=== PATIENT | female | born 1940 | race Caucasian/White ===

== ENCOUNTER 2019-10-12 10:39 | Observation (INO) ==
[2019-10-12] MEDS ORDERED: NITROGLYCERIN SL 0.4 MG TABLET SL PRN (11:10)
[2019-10-12 11:17] LABS: Basophils # 0.1 10*3/uL (0.0-0.2); Basophils % 0.7 % (0.0-0.8); Eosinophils # 0.2 10*3/uL (0.0-0.87); Hematocrit 43.2 VOL% (35.7-47.0); Hemoglobin 14.4 GM/DL (12.0-16.0); Immature Granulocytes % 0.4 %; Immature Granulocytes Absolute 0.03 #; Lymphocytes # 1.8 10*3/uL (1.4-4.0); Lymphocytes % 23.6 % (21.3-54.2); Mean Corpuscular HGB Conc 33.3 GM/DL (32-36); Mean Corpuscular Volume 91.1 FL (87-102); Mean Platelet Volume 9.6 FL (9.6-12.0); Monocytes % 7.5 % (1.7-12.7); Neutrophils % 65.8 % (38.7-73.9); Platelet Count 207 T/CUMM (130-400); Red Blood Count 4.74 MC/CUMM (3.8-5.5); Red Cell Distribution Width 13.6 % (9.3-17.3); White Blood Count 7.6 T/CUMM (4-12)
[2019-10-12 11:37] LABS: Calcium 9.2 MG/DL (8.5-10.1); Osmolality,Calculated 270.1 MOS/KG (273-304)
[2019-10-12 11:51] LABS: Bilirubin,Direct 0.13 MG/DL (0.0-0.20); Bilirubin,Indirect 0.4 MG/DL (0.0-1.0); Bilirubin,Total 0.5 MG/DL (0.2-1.0); Total Protein 7.6 G/DL (6.4-8.3)
[2019-10-12 12:24] LABS: Apearance,Urine CLEAR (Clear); Bacteria,Urine Occasional /HPF (Few); Bilirubin,Urine Negative (Negative); Blood, Urine Small mg/dL (Negative); Glucose,Urine (UA) Negative (Negative); Ketones,Urine Negative (Negative); Nitrite,Urine Negative (Negative); Protein,Urine Negative; RBC,Urine 2 /HPF (0-4); Squamous Epithelial Cell,Urine Occasional /HPF (0-10); Urine Color Straw (Yellow); Urine Specific Gravity 1.002 (1.001-1.035); Urine Urobilinogen < 2.0 EU/DL (0.2-1.0); WBC,Urine 1 /HPF (0-6)
[2019-10-12 12:36] LABS: Barbiturates Screen,Urine Negative (Negative); Benzodiazepines Screen,Urine Negative (Negative); Cannabinoid Screen,Urine Negative (Negative); Opiate Screen,Urine Negative (Negative); Phencyclidine Screen,Urine Negative (Negative)
[2019-10-12] MEDS ORDERED: ACETAMINOPHEN 325 MG TABLET PO PRN (14:46)
[2019-10-12] MEDS ORDERED: ONDANSETRON 4 MG/2 ML VIAL IV PRN (14:46)
[2019-10-12] MEDS ORDERED: DEXTROSE 10% 25 GM/250 ML BAG IV PRN (14:49)
[2019-10-12] MEDS ORDERED: GLUCAGON 1 MG VIAL IM PRN (14:49)
[2019-10-12] MEDS ORDERED: ALUM/MAG/SIMETH/LIDO VISC 1:1 30 ML BOTTLE PO PRN (14:53)
[2019-10-12] MEDS ORDERED: IPRATROPIUM 500 MCG/2.5 ML NEB RESP TX PRN (14:57)
[2019-10-12] MEDS: ATORVASTATIN 10 MG TABLET PO SCH (21:11)
[2019-10-13 05:29] LABS: Basophils # 0.1 10*3/uL (0.0-0.2); Eosinophils # 0.3 10*3/uL (0.0-0.87); Eosinophils % 4.4 % (0.00-10.9); Hematocrit 41.4 VOL% (35.7-47.0); Hemoglobin 13.8 GM/DL (12.0-16.0); Immature Granulocytes % 0.3 %; Immature Granulocytes Absolute 0.02 #; Lymphocytes # 1.9 10*3/uL (1.4-4.0); Lymphocytes % 30.7 % (21.3-54.2); Mean Corpuscular HGB Conc 33.3 GM/DL (32-36); Mean Corpuscular Volume 91.2 FL (87-102); Mean Platelet Volume 9.8 FL (9.6-12.0); Neutrophils % 55.6 % (38.7-73.9); Platelet Count 199 T/CUMM (130-400); Red Blood Count 4.54 MC/CUMM (3.8-5.5); Red Cell Distribution Width 13.7 % (9.3-17.3); White Blood Count 6.2 T/CUMM (4-12)
[2019-10-13 06:00] LABS: Calcium 8.8 MG/DL (8.5-10.1); Osmolality,Calculated 281.4 MOS/KG (273-304); Risk Ratio 3.63; Thyroid Stimulating Hormone 7.7 uIU/ml (0.358-3.74)
[2019-10-13] MEDS ORDERED: MAGNESIUM SULF RIDER 2 GM in PREMIX 1 EACH IV PRN (08:55)
[2019-10-13] MEDS ORDERED: POTASSIUM CHLORIDE RIDER 10 MEQ in PREMIX 1 EACH IV PRN (08:55)
[2019-10-13] MEDS ORDERED: FELODIPINE 5 MG TABLET PO SCH (09:00)
[2019-10-13] MEDS ORDERED: NON-FORMULARY MEDICATION (Tiotropium Bromide [Spiriva Respimat] 2 PUFF) INH SCH (09:00)
[2019-10-13] MEDS: LISINOPRIL 10 MG TABLET PO SCH (09:32)
[2019-10-13] MEDS: RANITIDINE 150 MG TABLET PO SCH (09:32)
[2019-10-13] MEDS: CALCIUM (CARBONATE)/VITAMIN D 600 MG-400 UNIT TABLET PO SCH (09:32)
[2019-10-13] MEDS: MONTELUKAST 10 MG TABLET PO SCH (09:32)
[2019-10-13] MEDS: MULTIVITAMIN (CENTRUM) TABLET PO SCH (09:32)
[2019-10-13] MEDS: NICOTINE 21 MG/24 HR PATCH TRANSDERM SCH (09:33)
[2019-10-13] MEDS: ASPIRIN EC 81 MG TABLET PO SCH (09:33)
[2019-10-13] MEDS: CLOPIDOGREL 75 MG TABLET PO SCH (09:33)
[2019-10-13] MEDS: PANTOPRAZOLE 40 MG TABLET PO SCH (09:33)
[2019-10-13] MEDS: VITAMIN E 400 UNIT CAPSULE PO SCH (09:33)
[2019-10-13] MEDS ORDERED: MAGNESIUM CITRATE 300 ML BOTTLE PO PRN (09:41)
[2019-10-13] MEDS: SODIUM CHLORIDE 0.9% 1,000 ML IV SCH (09:45)
[2019-10-13] MEDS: MULTIVITAMIN (OCUVITE) TABLET PO SCH (10:53)
[2019-10-13] MEDS: ATORVASTATIN 10 MG TABLET PO SCH (21:02)
[2019-10-14] MEDS: SODIUM CHLORIDE 0.9% 1,000 ML IV SCH ×2 (00:46→18:39)
[2019-10-14 05:45] LABS: Basophils # 0.1 10*3/uL (0.0-0.2); Basophils % 1.2 % (0.0-0.8); Eosinophils # 0.3 10*3/uL (0.0-0.87); Hematocrit 39.7 VOL% (35.7-47.0); Hemoglobin 13.1 GM/DL (12.0-16.0); Immature Granulocytes % 0.2 %; Immature Granulocytes Absolute 0.01 #; Lymphocytes # 1.7 10*3/uL (1.4-4.0); Lymphocytes % 33.6 % (21.3-54.2); Mean Corpuscular Volume 92.3 FL (87-102); Mean Platelet Volume 9.8 FL (9.6-12.0); Monocytes % 10.5 % (1.7-12.7); Neutrophils % 48.5 % (38.7-73.9); Platelet Count 193 T/CUMM (130-400); White Blood Count 5.2 T/CUMM (4-12)
[2019-10-14 05:57] LABS: Calcium 8.9 MG/DL (8.5-10.1); Osmolality,Calculated 277.4 MOS/KG (273-304)
[2019-10-14] MEDS ORDERED: LEVOTHYROXINE 50 MCG TABLET PO SCH (06:30)
[2019-10-14] MEDS: LEVOTHYROXINE 25 MCG TABLET PO SCH (07:41)
[2019-10-14] MEDS ORDERED: diphenhydrAMINE CAP 25 MG CAPSULE PO ONE (08:55)
[2019-10-14] MEDS ORDERED: DIAZEPAM 5 MG TABLET PO ONE (08:55)
[2019-10-14] MEDS: NICOTINE 21 MG/24 HR PATCH TRANSDERM SCH (10:53)
[2019-10-14] MEDS ORDERED: HEPARIN/NACL 0.9% 2 UNITS/ML 1,000 ML IV ONE (11:51)
[2019-10-14] MEDS ORDERED: LIDOCAINE 1% 20 ML VIAL ONE (11:51)
[2019-10-14 11:54] VITALS: BP 149/78
[2019-10-14] MEDS ORDERED: MIDAZOLAM 2 MG/2 ML VIAL ONE (13:40)
[2019-10-14] MEDS ORDERED: HYDROmorphone 2 MG/1 ML VIAL ONE (13:40)
[2019-10-14] MEDS ORDERED: diphenhydrAMINE 50 MG/1 ML VIAL ONE (14:09)
[2019-10-14] MEDS ORDERED: NITROGLYCERIN DRIP 50 MG/250 ML BOTTLE IV ONE (14:33)
[2019-10-14] MEDS ORDERED: VERAPAMIL 5 MG/2 ML VIAL ONE (14:33)
[2019-10-14] MEDS ORDERED: BIVALIRUDIN 250 MG VIAL IV ONE (14:51)
[2019-10-14] MEDS ORDERED: HEPARIN/NACL 0.9% 2 UNITS/ML 500 ML IV ONE ×2 (15:17→15:49)
[2019-10-14] MEDS ORDERED: PHENYLEPHRINE 50 MG/5 ML VIAL ONE (16:09)
[2019-10-14] MEDS ORDERED: CLOPIDOGREL 300 MG TABLET ONE (16:55)
[2019-10-14 17:00] LABS: Apearance,Urine CLEAR (Clear); Bilirubin,Urine Negative (Negative); Blood, Urine Moderate mg/dL (Negative); Glucose,Urine (UA) Negative (Negative); Ketones,Urine Negative (Negative); Mucus,Urine Occasional /LPF (Occasional); Nitrite,Urine Negative (Negative); Protein,Urine Negative; RBC,Urine 12 /HPF (0-4); Squamous Epithelial Cell,Urine Occasional /HPF (0-10); Urine Color Colorless (Yellow); Urine Specific Gravity 1.029 (1.001-1.035); Urine Urobilinogen < 2.0 EU/DL (0.2-1.0); WBC,Urine <1 /HPF (0-6)
[2019-10-14] MEDS ORDERED: ZALEPLON 5 MG CAPSULE PO PRN (17:07)
[2019-10-14] MEDS: MULTIVITAMIN (CENTRUM) TABLET PO SCH (17:59)
[2019-10-14] MEDS: CALCIUM (CARBONATE)/VITAMIN D 600 MG-400 UNIT TABLET PO SCH (17:59)
[2019-10-14] MEDS: CLOPIDOGREL 75 MG TABLET PO SCH (17:59)
[2019-10-14] MEDS: ASPIRIN EC 81 MG TABLET PO SCH (17:59)
[2019-10-14] MEDS: MULTIVITAMIN (OCUVITE) TABLET PO SCH (17:59)
[2019-10-14] MEDS: LISINOPRIL 10 MG TABLET PO SCH (18:00)
[2019-10-14] MEDS: PANTOPRAZOLE 40 MG TABLET PO SCH (18:00)
[2019-10-14] MEDS: FELODIPINE 2.5 MG TABLET PO SCH (18:00)
[2019-10-14] MEDS: MONTELUKAST 10 MG TABLET PO SCH (18:01)
[2019-10-14] MEDS: RANITIDINE 150 MG TABLET PO SCH (18:01)
[2019-10-14] MEDS: VITAMIN E 400 UNIT CAPSULE PO SCH (18:01)
[2019-10-14] MEDS: ATORVASTATIN 10 MG TABLET PO SCH (22:34)
[2019-10-15 05:12] LABS: Basophils % 0.5 % (0.0-0.8); Eosinophils # 0.2 10*3/uL (0.0-0.87); Eosinophils % 2.6 % (0.00-10.9); Hematocrit 38.9 VOL% (35.7-47.0); Hemoglobin 12.8 GM/DL (12.0-16.0); Immature Granulocytes % 0.3 %; Immature Granulocytes Absolute 0.02 #; Lymphocytes # 1.3 10*3/uL (1.4-4.0); Mean Corpuscular HGB Conc 32.9 GM/DL (32-36); Mean Platelet Volume 9.3 FL (9.6-12.0); Neutrophils % 67.6 % (38.7-73.9); Platelet Count 174 T/CUMM (130-400); Red Blood Count 4.23 MC/CUMM (3.8-5.5); Red Cell Distribution Width 13.4 % (9.3-17.3); White Blood Count 6.7 T/CUMM (4-12)
[2019-10-15 05:36] LABS: Blood Urea Nitrogen 7 MG/DL (7-18); Calcium 8.2 MG/DL (8.5-10.1); Estimated Glom Filtration Rate 89 ML/MIN; Glucose 86 MG/DL (74-106); Osmolality,Calculated 273.5 MOS/KG (273-304)
[2019-10-15 05:38] LABS: Troponin I 0.442 NG/ML (0.00-0.045)
[2019-10-15] MEDS: LEVOTHYROXINE 25 MCG TABLET PO SCH (06:26)
[2019-10-15] MEDS ORDERED: POTASSIUM CHLORIDE 20 MEQ TABLET PO ONE (06:56)
[2019-10-15] MEDS: VITAMIN E 400 UNIT CAPSULE PO SCH (09:09)
[2019-10-15] MEDS: CALCIUM (CARBONATE)/VITAMIN D 600 MG-400 UNIT TABLET PO SCH (09:09)
[2019-10-15] MEDS: MULTIVITAMIN (OCUVITE) TABLET PO SCH (09:09)
[2019-10-15] MEDS: MULTIVITAMIN (CENTRUM) TABLET PO SCH (09:09)
[2019-10-15] MEDS: RANITIDINE 150 MG TABLET PO SCH (09:10)
[2019-10-15] MEDS: CLOPIDOGREL 75 MG TABLET PO SCH (09:10)
[2019-10-15] MEDS: ASPIRIN EC 81 MG TABLET PO SCH (09:10)
[2019-10-15] MEDS: PANTOPRAZOLE 40 MG TABLET PO SCH (09:10)
[2019-10-15] MEDS: LISINOPRIL 10 MG TABLET PO SCH (09:10)
[2019-10-15] MEDS: MONTELUKAST 10 MG TABLET PO SCH (09:10)
[2019-10-15] MEDS: NICOTINE 21 MG/24 HR PATCH TRANSDERM SCH (09:12)
[2019-10-15] MEDS: SODIUM CHLORIDE 0.9% 1,000 ML IV SCH (10:00)
[2019-10-15] MEDS: FELODIPINE 2.5 MG TABLET PO SCH (10:02)
== END 2019-10-15 12:15 | disposition home or self-care (01) ==
LOC: N.EDINP 10:39 → N.ED 10:39 → N.2W 17:35 → N.CC 10-14 18:03
PROVIDERS: ADMIT Internal Medicine; ATTEND Internal Medicine
PROC: CLCCHCL (ICD-10-PCS; 2019-10-14 13:45)

== ENCOUNTER 2022-04-04 07:49 | Inpatient (IN) ==
[2022-04-04] MEDS ORDERED: diphenhydrAMINE CAP 50 MG CAPSULE PO ONE (07:55)
[2022-04-04] MEDS ORDERED: MAGNESIUM SULF RIDER 2 GM/50 ML PREMIX IV PRN ×2 (07:55→14:28)
[2022-04-04] MEDS ORDERED: ASPIRIN 325 MG TABLET PO ONE (07:55)
[2022-04-04] MEDS ORDERED: DIAZEPAM 5 MG TABLET PO ONE (07:55)
[2022-04-04] MEDS ORDERED: POTASSIUM CHLORIDE RIDER 10 MEQ/100 ML PREMIX IV PRN ×3 (07:55→15:53)
[2022-04-04] MEDS ORDERED: SODIUM CHLORIDE 0.9% 1,000 ML IV SCH (08:00)
[2022-04-04] MEDS ORDERED: LIDOCAINE 1%/EPI INJ 20 ML VIAL ONE (08:07)
[2022-04-04] MEDS ORDERED: TISSUE ADHESIVE 1 EACH APPLICATOR TOP ONE (08:07)
[2022-04-04] MEDS ORDERED: VERAPAMIL 5 MG/2 ML VIAL ONE (08:09)
[2022-04-04] MEDS ORDERED: HEPARIN/NACL 0.9% 2 UNITS/ML 2,000 UNIT/1,000 ML BAG IV ONE ×2 (08:09→10:44)
[2022-04-04] MEDS ORDERED: NITROGLYCERIN DRIP 50 MG/250 ML BOTTLE IV ONE (08:09)
[2022-04-04] MEDS ORDERED: diphenhydrAMINE CAP 50 MG CAPSULE ONE (08:26)
[2022-04-04] MEDS ORDERED: ASPIRIN 325 MG TABLET ONE (08:26)
[2022-04-04] MEDS ORDERED: DIAZEPAM 5 MG TABLET ONE (08:26)
[2022-04-04 08:28] LABS: Basophils # 0.1 10*3/uL (0.0-0.2); Basophils % 1.1 % (0.0-0.8); Eosinophils # 0.4 10*3/uL (0.0-0.87); Eosinophils % 5.6 % (0.00-10.9); Hematocrit 42.9 VOL% (35.7-47.0); Hemoglobin 14.1 GM/DL (12.0-16.0); Immature Granulocytes % 0.3 %; Immature Granulocytes Absolute 0.02 #; Lymphocytes # 1.1 10*3/uL (1.4-4.0); Lymphocytes % 17.4 % (21.3-54.2); Mean Corpuscular HGB Conc 32.9 GM/DL (32-36); Mean Corpuscular Volume 90.7 FL (87-102); Mean Platelet Volume 9.5 FL (9.6-12.0); Monocytes # 0.6 10*3/uL (0.11-0.8); Monocytes % 9.7 % (1.7-12.7); Neutrophils % 65.9 % (38.7-73.9); Platelet Count 195 T/CUMM (130-400); Red Blood Count 4.73 MC/CUMM (3.8-5.5); Red Cell Distribution Width 14.1 % (9.3-17.3); White Blood Count 6.3 T/CUMM (4-12)
[2022-04-04] MEDS ORDERED: MIDAZOLAM 2 MG/2 ML VIAL ONE ×2 (08:50→10:57)
[2022-04-04] MEDS ORDERED: HYDROmorphone 1 MG/1 ML SYRINGE ONE (08:50)
[2022-04-04 09:03] LABS: Albumin 3.9 G/DL (3.4-5.0); Bilirubin,Total 0.4 MG/DL (0.20-1.00); Calcium 9.9 MG/DL (8.5-10.1); Osmolality,Calculated 268.1 MOS/KG (273-304)
[2022-04-04] MEDS ORDERED: ENOXAPARIN 30 MG/0.3 ML SYRINGE ONE (09:04)
[2022-04-04] MEDS ORDERED: DOPamine 800 MG/250 ML PREMIX IV ONE (10:29)
[2022-04-04] MEDS ORDERED: SODIUM BICARBONATE 50 MEQ/50 ML VIAL IV ONE ×5 (10:47→23:59)
[2022-04-04] MEDS ORDERED: POTASSIUM CHLORIDE RIDER 20 MEQ/100 ML PREMIX IV ONE (10:48)
[2022-04-04] MEDS ORDERED: CALCIUM CHLORIDE 1,000 MG/10 ML SYRINGE IV ONE ×2 (10:48→18:00)
[2022-04-04] MEDS ORDERED: NITROPRUSSIDE 50 MG/2 ML VIAL ONE (10:48)
[2022-04-04] MEDS ORDERED: PHENYLEPHRINE DRIP 40 MG/250 ML PREMIX IV ONE (10:48)
[2022-04-04] MEDS ORDERED: LIDOCAINE 2% 5 ML VIAL ONE ×3 (10:56→12:38)
[2022-04-04] MEDS ORDERED: PAPAVERINE 60 MG/2 ML VIAL ONE (10:57)
[2022-04-04] MEDS ORDERED: SUCCINYLCHOLINE 200 MG/10 ML VIAL ONE (10:57)
[2022-04-04] MEDS ORDERED: ETOMIDATE 40 MG/20 ML VIAL IV ONE (10:57)
[2022-04-04] MEDS ORDERED: VANCOMYCIN 1,000 MG VIAL ONE ×2 (10:58→11:43)
[2022-04-04] MEDS ORDERED: VANCOMYCIN 500 MG VIAL ONE (10:58)
[2022-04-04] MEDS ORDERED: MIDAZOLAM 10 MG/2 ML VIAL ONE ×3 (10:59→13:03)
[2022-04-04] MEDS ORDERED: SUFentanil 250 MCG/5 ML AMP ONE ×2 (10:59)
[2022-04-04] MEDS ORDERED: ATROPINE 1 MG/10 ML SYRINGE ONE ×2 (11:12→12:27)
[2022-04-04] MEDS ORDERED: EPINEPHrine 1 MG/10 ML SYRINGE IV ONE ×2 (11:23→11:40)
[2022-04-04] MEDS ORDERED: CEFUROXIME INJ 1,500 MG in SODIUM CHLORIDE 0.9% 100 ML IV ONE (11:28)
[2022-04-04] MEDS ORDERED: ATROPINE 1 MG/10 ML SYRINGE IV ONE (11:39)
[2022-04-04 11:52] LABS: ABG Base Excess -9.2 MMOL/L (-2.5-2.5); ABG HCO3 17.1 MMOL/L (20-26); ABG Oxygen Saturation 99.2 % (95-100); ABG PCO2 35.3 MM HG (35-48); ABG PH 7.284 (7.35-7.45); ABG TCO2 15.4 MMOL/L (23-27); Glucose Heart Surgery 210 MG/DL (74-106); Hematocrit Heart Surgery 31.6 PERCENT (37-47); Hemoglobin Heart Surgery 10.2 G/DL (12.0-16.0); Ionized Calcium Arterial 1.56 MMOL/L (1.21-1.46); PCO2 Patient Temp Arterial 35.3 MMHG; PH Patient Temp Arterial 7.284; Patient Temperature 37 CELCIUS; Potassium Heart/CVR 3.3 MMOL/L (3.5-5.1); Sodium Heart/CVR 137 MMOL/L (135-145)
[2022-04-04] MEDS ORDERED: EPINEPHrine 1 MG/ML VIAL ONE ×3 (12:23→14:30)
[2022-04-04] MEDS ORDERED: AMIODARONE 150 MG/3 ML VIAL ONE ×3 (12:23→18:44)
[2022-04-04] MEDS ORDERED: EPINEPHrine 1 MG/10 ML SYRINGE ONE (12:24)
[2022-04-04 12:26] LABS: Hematocrit Heart Surgery 18.8 PERCENT (37-47); PCO2 Patient Temp Venous 33.8 MM HG; PH Patient Temp Venous 7.45; PO2 Patient Temp Venous 34.8 MM HG; Potassium Heart/CVR 3.3 MMOL/L (3.5-5.1); VBG HCO3 24.2 MEQ/L (24-28); VBG Oxygen Saturation 77.2 %; VBG PCO2 39.1 MMHG (41-51); VBG PH 7.406; VBG PO2 42.8 MMHG (17-40); VBG Total CO2 23.6 MMOL/L
[2022-04-04] MEDS ORDERED: SODIUM CHLORIDE 0.9% 100 ML IV ONE (12:26)
[2022-04-04] MEDS ORDERED: SODIUM CHLORIDE 0.9% 500 ML IV ONE (12:26)
[2022-04-04] MEDS ORDERED: LACTATED RINGERS 1,000 ML IV ONE (12:26)
[2022-04-04] MEDS ORDERED: SEVOFLURANE 1 UNIT/15 MINUTE INH ONE ×2 (12:26→15:01)
[2022-04-04] MEDS ORDERED: VECURONIUM 10 MG VIAL IV ONE ×2 (12:26→13:03)
[2022-04-04] MEDS ORDERED: AMINOCAPROIC ACID 5,000 MG/20 ML VIAL ONE ×4 (12:27)
[2022-04-04] MEDS ORDERED: HEPARIN/NACL 0.9% 2 UNITS/ML 1,000 UNIT/500 ML BAG IV ONE (12:41)
[2022-04-04 12:48] LABS: Glucose,Urine (UA) Negative (Negative); Ketones,Urine Negative (Negative); Protein,Urine Negative (Negative); Urine Appearance Clear (Clear); Urine Color Light Yellow (Yellow)
[2022-04-04 12:49] LABS: Bilirubin,Urine Negative (Negative); Blood, Urine Small mg/dL (Negative); Nitrite,Urine Negative (Negative); Urine Urobilinogen 0.2 eU/dL (<2.0)
[2022-04-04 12:51] LABS: Mucus,Urine Occasional /LPF (Occasional); RBC,Urine 2 /HPF (0-4)
[2022-04-04 12:58] LABS: Hematocrit Heart Surgery 21.6 PERCENT (37-47); Hemoglobin Heart Surgery 6.9 G/DL (12.0-16.0); PCO2 Patient Temp Venous 31.2 MM HG; PH Patient Temp Venous 7.483; PO2 Patient Temp Venous 36.1 MM HG; VBG Base Excess 0.4 MEQ/L (0-4); VBG HCO3 24.6 MEQ/L (24-28); VBG Oxygen Saturation 82.6 %; VBG PCO2 36.1 MMHG (41-51); VBG PH 7.438; VBG PO2 44.4 MMHG (17-40); VBG Total CO2 23.1 MMOL/L
[2022-04-04] MEDS ORDERED: CALCIUM CHLORIDE 1,000 MG/10 ML VIAL IV ONE ×2 (13:10)
[2022-04-04 13:23] LABS: Hematocrit Heart Surgery 21.5 PERCENT (37-47); Hemoglobin Heart Surgery 6.9 G/DL (12.0-16.0); PCO2 Patient Temp Venous 36.3 MM HG; PH Patient Temp Venous 7.466; PO2 Patient Temp Venous 29.2 MM HG; Potassium Heart/CVR 3.8 MMOL/L (3.5-5.1); VBG Base Excess 2.5 MEQ/L (0-4); VBG HCO3 26.3 MEQ/L (24-28); VBG Oxygen Saturation 65.1 %; VBG PCO2 38.1 MMHG (41-51); VBG PH 7.451; VBG PO2 31.3 MMHG (17-40); VBG Total CO2 25.2 MMOL/L
[2022-04-04 13:57] LABS: ABG Base Excess 0.5 MMOL/L (-2.5-2.5); ABG HCO3 24.9 MMOL/L (20-26); ABG PCO2 35.2 MM HG (35-48); ABG PH 7.447 (7.35-7.45); ABG TCO2 22.5 MMOL/L (23-27); Glucose Heart Surgery 397 MG/DL (74-106); Hematocrit Heart Surgery 25.9 PERCENT (37-47); Hemoglobin Heart Surgery 8.3 G/DL (12.0-16.0); Ionized Calcium Arterial 1.22 MMOL/L (1.21-1.46); PCO2 Patient Temp Arterial 35.2 MMHG; PH Patient Temp Arterial 7.447; Patient Temperature 37 CELCIUS; Potassium Heart/CVR 3.1 MMOL/L (3.5-5.1); Sodium Heart/CVR 136 MMOL/L (135-145)
[2022-04-04] MEDS ORDERED: methylPREDNISolone SOD SUC 1,000 MG/8 ML VIAL ONE (14:20)
[2022-04-04] MEDS ORDERED: ALBUMIN 25% 25 GM/100 ML VIAL IV ONE (14:20)
[2022-04-04] MEDS ORDERED: DEXTROSE 5% KCL 20 MEQ 40 MEQ/2,000 ML BAG IV ONE (14:20)
[2022-04-04] MEDS ORDERED: MAGNESIUM SULFATE 5 GM/10 ML VIAL IV ONE (14:20)
[2022-04-04] MEDS ORDERED: ALBUMIN 5% 25.0 GM/500 ML VIAL IV ONE (14:21)
[2022-04-04] MEDS ORDERED: HEPARIN 10,000 UNIT/10 ML VIAL ONE (14:21)
[2022-04-04] MEDS ORDERED: FUROSEMIDE 20 MG/2 ML VIAL ONE (14:21)
[2022-04-04] MEDS ORDERED: MANNITOL 12.5 GM/50 ML VIAL IV ONE (14:21)
[2022-04-04] MEDS ORDERED: PROTAMINE SULFATE 250 MG/25 ML VIAL IV ONE (14:21)
[2022-04-04] MEDS ORDERED: PROTAMINE SULFATE 50 MG/5 ML VIAL IV ONE (14:22)
[2022-04-04] MEDS ORDERED: MIDAZOLAM 10 MG/2 ML VIAL IV PRN (14:28)
[2022-04-04] MEDS ORDERED: ONDANSETRON 4 MG/2 ML VIAL IV PRN (14:28)
[2022-04-04] MEDS ORDERED: VECURONIUM 10 MG VIAL IV PRN ×2 (14:28)
[2022-04-04] MEDS ORDERED: ACETAMINOPHEN 650 MG SUPP RECTAL PRN (14:28)
[2022-04-04] MEDS ORDERED: INSULIN REGULAR 100 UNIT/ML IV PRN (14:28)
[2022-04-04] MEDS ORDERED: NITROPRUSSIDE 100 MG in DEXTROSE 5% 250 ML IV PRN (14:28)
[2022-04-04] MEDS ORDERED: POTASSIUM CHLORIDE RIDER 20 MEQ/100 ML PREMIX IV SCH (14:28)
[2022-04-04] MEDS ORDERED: SODIUM CHLORIDE 0.45% 1,000 ML IV SCH ×2 (14:28)
[2022-04-04] MEDS ORDERED: MAGNESIUM SULF RIDER 4 GM/100 ML PREMIX IV PRN (14:28)
[2022-04-04] MEDS ORDERED: MORPHINE 10 MG/1 ML VIAL IV PRN (14:28)
[2022-04-04] MEDS ORDERED: INSULIN REGULAR DRIP 100 ML IV SCH (14:28)
[2022-04-04] MEDS ORDERED: MIDAZOLAM 2 MG/2 ML VIAL IV PRN (14:28)
[2022-04-04] MEDS ORDERED: INSULIN REGULAR 100 UNIT/ML IV ONE (14:28)
[2022-04-04] MEDS ORDERED: CALCIUM CHLORIDE 1,000 MG/10 ML SYRINGE IV PRN (14:28)
[2022-04-04] MEDS ORDERED: CHLORHEXIDINE 4% SOLN 118 ML BOTTLE TOP PRN (14:28)
[2022-04-04] MEDS ORDERED: DEXTROSE 10% 250 ML BAG IV PRN ×2 (14:28)
[2022-04-04] MEDS ORDERED: LACTATED RINGERS 250 ML IV PRN (14:28)
[2022-04-04] MEDS: PHENYLEPHRINE DRIP 40 MG/250 ML PREMIX IV PRN ×2 (14:43→21:45)
[2022-04-04 15:18] LABS: Basophils % 0.3 % (0.0-0.8); Eosinophils # 0.2 10*3/uL (0.0-0.87); Eosinophils % 1.5 % (0.00-10.9); Hematocrit 26.8 VOL% (35.7-47.0); Hemoglobin 9.2 GM/DL (12.0-16.0); Immature Granulocytes Absolute 0.15 #; Lymphocytes # 2.1 10*3/uL (1.4-4.0); Lymphocytes % 13.8 % (21.3-54.2); Mean Corpuscular HGB Conc 34.3 GM/DL (32-36); Mean Corpuscular Volume 90.2 FL (87-102); Mean Platelet Volume 10.3 FL (9.6-12.0); Monocytes # 0.9 10*3/uL (0.11-0.8); Monocytes % 6.2 % (1.7-12.7); Neutrophils % 77.2 % (38.7-73.9); Platelet Count 115 T/CUMM (130-400); Red Blood Count 2.97 MC/CUMM (3.8-5.5); Red Cell Distribution Width 14.4 % (9.3-17.3); White Blood Count 14.9 T/CUMM (4-12)
[2022-04-04 15:31] LABS: INR 1.2; PT Patient Result 13.3 SECS (10.5-12.0); Partial Thromboplastin Time 35.3 SECS (23.8-32.1)
[2022-04-04 15:42] LABS: ABG Base Excess -1.8 MMOL/L (-2.5-2.5); ABG HCO3 22.9 MMOL/L (20-26); ABG Oxygen Saturation 99.7 % (95-100); ABG PCO2 41.8 MM HG (35-48); ABG PH 7.359 (7.35-7.45); ABG TCO2 21.7 MMOL/L (23-27); Glucose Heart Surgery 318 MG/DL (74-106); Hematocrit Heart Surgery 28.8 PERCENT (37-47); Hemoglobin Heart Surgery 9.3 G/DL (12.0-16.0); Potassium Heart/CVR 3.2 MMOL/L (3.5-5.1)
[2022-04-04 15:44] LABS: Albumin 2.5 G/DL (3.4-5.0); Bilirubin,Total 0.6 MG/DL (0.20-1.00); Calcium 8.7 MG/DL (8.5-10.1); Osmolality,Calculated 289.4 MOS/KG (273-304); Potassium 3.3 MMOL/L (3.5-5.1); Total Protein 4.4 G/DL (6.4-8.2)
[2022-04-04 15:59] LABS: CKMB % 12.86 %
[2022-04-04 16:02] LABS: High Sensitive Troponin I* 43512.5 ng/L (0-54)
[2022-04-04] MEDS: POTASSIUM CHLORIDE RIDER 20 MEQ/100 ML PREMIX IV PRN ×3 (16:12→19:57)
[2022-04-04] MEDS: LACTATED RINGERS 1,000 ML IV PRN ×2 (16:43→17:44)
[2022-04-04] MEDS ORDERED: AMIODARONE INJ 100 MG in DEXTROSE 5% 100 ML IV ONE (16:57)
[2022-04-04] MEDS ORDERED: AMIODARONE 450 MG/9 ML VIAL IV ONE (16:58)
[2022-04-04] MEDS: AMIODARONE INJ 450 MG in DEXTROSE 5% 241 ML IV SCH (17:10)
[2022-04-04] MEDS: ALBUMIN 5% 12.5 GM/250 ML VIAL IV PRN ×4 (17:17→23:15)
[2022-04-04] MEDS ORDERED: CALCIUM CHLORIDE 1,000 MG in SODIUM CHLORIDE 0.9% 100 ML IV ONE (17:19)
[2022-04-04 17:34] LABS: ABG Base Excess -6.6 MMOL/L (-2.5-2.5); ABG Oxygen Saturation 97.9 % (95-100); ABG PCO2 42.5 MM HG (35-48); ABG PH 7.279 (7.35-7.45); ABG TCO2 18.2 MMOL/L (23-27); Glucose Heart Surgery 283 MG/DL (74-106); Hematocrit Heart Surgery 33.1 PERCENT (37-47); Hemoglobin Heart Surgery 10.7 G/DL (12.0-16.0); Potassium Heart/CVR 4.8 MMOL/L (3.5-5.1)
[2022-04-04] MEDS ORDERED: NITROGLYCERIN DRIP 50 MG/250 ML BOTTLE IV PRN (18:11)
[2022-04-04 18:12] LABS: ABG Base Excess 1.1 MMOL/L (-2.5-2.5); ABG HCO3 25.4 MMOL/L (20-26); ABG Oxygen Saturation 99.9 % (95-100); ABG PCO2 37.3 MM HG (35-48); ABG PH 7.436 (7.35-7.45); ABG TCO2 22.7 MMOL/L (23-27); Glucose Heart Surgery 249 MG/DL (74-106); Hematocrit Heart Surgery 31.5 PERCENT (37-47); Hemoglobin Heart Surgery 10.2 G/DL (12.0-16.0)
[2022-04-04] MEDS ORDERED: AMIODARONE INJ 50 MG in DEXTROSE 5% 100 ML IV ONE ×2 (18:43→19:30)
[2022-04-04 20:24] LABS: CKMB % 13.03 %
[2022-04-04 20:32] LABS: High Sensitive Troponin I* 88551.8 ng/L (0-54)
[2022-04-04] MEDS: CHLORHEXIDINE 0.12% ORAL RINSE 60 ML BOTTLE SWISH/SPIT SCH (20:57)
[2022-04-04 20:59] LABS: ABG Base Excess -2.6 MMOL/L (-2.5-2.5); ABG HCO3 22.2 MMOL/L (20-26); ABG Oxygen Saturation 98.4 % (95-100); ABG PCO2 35.7 MM HG (35-48); ABG PH 7.393 (7.35-7.45); ABG TCO2 19.7 MMOL/L (23-27); Glucose Heart Surgery 225 MG/DL (74-106); Hematocrit Heart Surgery 32.7 PERCENT (37-47); Hemoglobin Heart Surgery 10.6 G/DL (12.0-16.0); Potassium Heart/CVR 4.3 MMOL/L (3.5-5.1)
[2022-04-04] MEDS ORDERED: FUROSEMIDE 40 MG/4 ML VIAL IV ONE (22:13)
[2022-04-04] MEDS: CEFUROXIME INJ 1,500 MG in SODIUM CHLORIDE 0.9% 100 ML IV SCH (22:30)
[2022-04-04 23:16] LABS: ABG Base Excess -8.5 MMOL/L (-2.5-2.5); ABG HCO3 17.5 MMOL/L (20-26); ABG Oxygen Saturation 94.7 % (95-100); ABG PCO2 41.8 MM HG (35-48); ABG PH 7.251 (7.35-7.45); ABG PO2 87.5 MM HG (80-95); ABG TCO2 16.9 MMOL/L (23-27); Glucose Heart Surgery 229 MG/DL (74-106); Hematocrit Heart Surgery 32.6 PERCENT (37-47); Hemoglobin Heart Surgery 10.5 G/DL (12.0-16.0); Potassium Heart/CVR 4.6 MMOL/L (3.5-5.1)
[2022-04-05] MEDS ORDERED: AMIODARONE INJ 450 MG in DEXTROSE 5% 241 ML IV SCH
[2022-04-05] MEDS ORDERED: SODIUM BICARBONATE 50 MEQ/50 ML VIAL IV ONE ×5 (00:03→07:31)
[2022-04-05] MEDS: AMIODARONE INJ 450 MG in DEXTROSE 5% 241 ML IV SCH ×2 (00:48→08:01)
[2022-04-05 01:23] LABS: ABG HCO3 18.7 MMOL/L (20-26); ABG PCO2 43.3 MM HG (35-48); ABG PH 7.266 (7.35-7.45); ABG PO2 94.8 MM HG (80-95); ABG TCO2 18.1 MMOL/L (23-27); Glucose Heart Surgery 169 MG/DL (74-106); Hematocrit Heart Surgery 32.6 PERCENT (37-47); Hemoglobin Heart Surgery 10.6 G/DL (12.0-16.0); Potassium Heart/CVR 4.3 MMOL/L (3.5-5.1)
[2022-04-05] MEDS ORDERED: FUROSEMIDE 40 MG/4 ML VIAL IV ONE ×4 (01:40→06:04)
[2022-04-05] MEDS ORDERED: SODIUM BICARB INJ 150 MEQ in STERILE WATER INJ 850 ML IV SCH (02:00)
[2022-04-05] MEDS: PHENYLEPHRINE DRIP 40 MG/250 ML PREMIX IV PRN ×2 (02:53→07:10)
[2022-04-05 03:16] LABS: ABG Base Excess -7.3 MMOL/L (-2.5-2.5); ABG HCO3 18.5 MMOL/L (20-26); ABG Oxygen Saturation 96.7 % (95-100); ABG PCO2 39.2 MM HG (35-48); ABG TCO2 17.3 MMOL/L (23-27); Glucose Heart Surgery 116 MG/DL (74-106); Hematocrit Heart Surgery 31.6 PERCENT (37-47); Hemoglobin Heart Surgery 10.2 G/DL (12.0-16.0); Potassium Heart/CVR 4.1 MMOL/L (3.5-5.1)
[2022-04-05 03:17] LABS: Basophils % 0.2 % (0.0-0.8); Eosinophils % 0.1 % (0.00-10.9); Hematocrit 31.8 VOL% (35.7-47.0); Hemoglobin 10.1 GM/DL (12.0-16.0); Immature Granulocytes % 0.5 %; Immature Granulocytes Absolute 0.05 #; Lymphocytes % 9.8 % (21.3-54.2); Mean Corpuscular HGB Conc 31.8 GM/DL (32-36); Mean Corpuscular Volume 93.8 FL (87-102); Monocytes # 0.6 10*3/uL (0.11-0.8); Monocytes % 5.9 % (1.7-12.7); Neutrophils % 83.5 % (38.7-73.9); Platelet Count 85 T/CUMM (130-400); Red Blood Count 3.39 MC/CUMM (3.8-5.5); Red Cell Distribution Width 15.1 % (9.3-17.3); White Blood Count 9.8 T/CUMM (4-12)
[2022-04-05 03:43] LABS: Albumin 2.8 G/DL (3.4-5.0); Bilirubin,Direct 1.22 MG/DL (0.0-0.20); Calcium 8.2 MG/DL (8.5-10.1); Osmolality,Calculated 291.4 MOS/KG (273-304); Potassium 4.2 MMOL/L (3.5-5.1); Total Protein 4.5 G/DL (6.4-8.2)
[2022-04-05] MEDS ORDERED: DOBUTamine 500 MG/250 ML PREMIX IV PRN (04:31)
[2022-04-05] MEDS: FUROSEMIDE INJ 100 MG in SODIUM CHLORIDE 0.9% 90 ML IV SCH ×2 (05:14→09:41)
[2022-04-05] MEDS: ALBUMIN 5% 12.5 GM/250 ML VIAL IV PRN ×3 (05:31→06:50)
[2022-04-05 05:42] LABS: ABG Base Excess -8.5 MMOL/L (-2.5-2.5); ABG HCO3 17.6 MMOL/L (20-26); ABG Oxygen Saturation 96.5 % (95-100); ABG PCO2 37.7 MM HG (35-48); ABG PH 7.279 (7.35-7.45); ABG TCO2 16.4 MMOL/L (23-27); Glucose Heart Surgery 66 MG/DL (74-106); Hematocrit Heart Surgery 30.3 PERCENT (37-47); Hemoglobin Heart Surgery 9.8 G/DL (12.0-16.0); Potassium Heart/CVR 4.1 MMOL/L (3.5-5.1)
[2022-04-05 06:43] LABS: ABG Base Excess -8.9 MMOL/L (-2.5-2.5); ABG HCO3 17.2 MMOL/L (20-26); ABG Oxygen Saturation 97.5 % (95-100); ABG PCO2 38.9 MM HG (35-48); ABG PH 7.262 (7.35-7.45); ABG TCO2 16.5 MMOL/L (23-27); Glucose Heart Surgery 380 MG/DL (74-106); Hematocrit Heart Surgery 26.8 PERCENT (37-47); Hemoglobin Heart Surgery 8.6 G/DL (12.0-16.0); Potassium Heart/CVR 4.1 MMOL/L (3.5-5.1)
[2022-04-05] MEDS: LACTATED RINGERS 1,000 ML IV PRN ×2 (07:01→07:20)
[2022-04-05 07:18] VITALS: BP 77/44
[2022-04-05] MEDS ORDERED: ASPIRIN CHEW 81 MG TABLET PO SCH (09:00)
[2022-04-05] MEDS: CHLORHEXIDINE 0.12% ORAL RINSE 60 ML BOTTLE SWISH/SPIT SCH (09:41)
[2022-04-05] MEDS: CEFUROXIME INJ 1,500 MG in SODIUM CHLORIDE 0.9% 100 ML IV SCH (09:46)
== END 2022-04-05 07:48 | disposition expired | DRG 234 ==
LOC: N.CL 07:49 → N.CVR 12:58
PROVIDERS: ADMIT Internal Medicine Cardiovascular Disease; ATTEND Internal Medicine Cardiovascular Disease
PROC: CLCCHCL (ICD-10-PCS; 2022-04-04 10:45)